=== PATIENT | female | born 1970 | race Caucasian/White ===

== ENCOUNTER 2017-09-21 04:19 | Emergency (ER) | payer BC ==
[2017-09-21] MEDS ORDERED: Ondansetron ODT 4 MG TAB ONE ×2 (04:56→06:25)
[2017-09-21] MEDS ORDERED: Adacel (T-DAP) 0.5 ML VIAL ONE (06:25)
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
== END 2017-09-21 07:16 | disposition home or self-care (01) ==
LOC: ERS 04:19
DX: S06.0X9A Concussion with loss of consciousness of unspecified duration, initial encounter (principal); S00.01XA Abrasion of scalp, initial encounter; Y04.0XXA Assault by unarmed brawl or fight, initial encounter
CPT/HCPCS: 70450; 90471; 90715; Q0162

== ENCOUNTER 2019-11-07 11:52 | Emergency (ER) | payer BC, OTHER | END 2019-11-07 12:49 | disposition home or self-care (01) | LOC: ERS 11:52 | DX: J06.9 Acute upper respiratory infection, unspecified (principal); Z20.828 Contact with and (suspected) exposure to other viral communicable diseases | CPT/HCPCS: 87804; 99283; U0001 ==

== ENCOUNTER 2020-11-24 15:44 | Emergency (ER) | payer BC | END 2020-11-24 16:15 | LOC: ERS 15:44 | DX: Z02.89 Encounter for other administrative examinations (principal) | CPT/HCPCS: 99283 ==